=== PATIENT | female | born 1935 | race Caucasian/White ===

== ENCOUNTER → 2017-01-20 | Outpatient (CLI) | payer MEDICARE, BC ==
[~2017-01-20] MED LIST: ACETAMINOPHEN PO; CIPRO PO; DARVOCET-N 1001 TAB; DARVOCET-N 1001 TAB PO; FLAGYL PO; GAS RELIEF 8080 M1 PO; IMDUR-ER30 M1 PO; LIPITOR20 MG PO; LISINOPRIL; LISINOPRIL10 MG PO; LORTAB 5/500 TA1 TA1 PO; LORTAB 7.5-5001 TAB; MACRODANTIN; METOPROLOL TART25 MG PO; OMEPRAZOLE40 MG PO; PACERONE; PHENERGAN PO; POTASSIUM CIT; POTASSIUM CITR10 MEQ PO; PRILOSEC PO; SIMVASTATIN20 MG PO; TOPROL XL; TOPROL XL PO; TRIMETHOPRIM PO; TRIMPEX100 MG PO; VIBRAMYCIN100 M1 PO; ZOCOR PO
--- NOTE | ~2017-01-20 | CT2 ---
[facility] A Service of [facility] RADIOLOGY TEXT RESULTS PATIENT: DANA TINOCO LOCATION: [facility] : 35 UNIT #: [id number] AGE: [address]: Andrés Ochoa MD SEX: F ORDER DR: [id number] [facility]. [place], [place] [address] [id number] O MR#: [id number] Acc #: [id number] NAME: DANA TINOCO : 1935 SEX: F STUDY DATE/TIME: 01/20/2017 12:12 UNIT: [facility] ROOM: STUDY DESCRIPTION: CT Abd and Pelv W Cont Attending Physician: Andrés Ochoa Jr., M.D. Referring Physician: Andrés Ochoa Jr., M.D. Ordering Physician: Andrés Ochoa Jr., M.D. Primary Care Physician: Jayden Shi M.D. MEDICAL IMAGING REPORT This report is preliminary unless electronic signature is present EXAM CT abdomen and pelvis with contrast INDICATION 81-year-old female with perineum pain for 3 weeks. Recent bladder infection. Prior appendectomy. Rectal surgery and ileostomy. TECHNIQUE CT of the abdomen and pelvis was performed following the administration of oral and IV contrast. Coronal and sagittal reformatted images were obtained. This CT exam was performed with one or more of the following radiation dose reduction techniques: automatic exposure control, adjustment of mA and/or kV according to patient size, and iterative reconstruction. COMPARISON 12/22/2011 FINDINGS There is mild scarring in the lung bases. The liver, gallbladder, spleen and kidneys are unremarkable. Stable right adrenal gland nodule likely an adenoma. The left adrenal gland is unremarkable. The pancreas is unremarkable. There is no ascites. There is a right-sided ileostomy. PELVIS: Postoperative change of the colon. There is no evidence of pelvic floor insufficiency. There is no evidence for abscess. Bone windows are unremarkable. IMPRESSION 1. There is no evidence for abscess. 2. Prior right-sided ileostomy. [facility] A Service [facility] RADIOLOGY TEXT RESULTS PATIENT: DANA TINOCO LOCATION: [facility] : 35 UNIT #: [id number] AGE: [address]: Andrés Ochoa MD SEX: F ORDER DR: Dictated by... Andrade Clark M.D. THIS IS AN ELECTRONICALLY VERIFIED REPORT Andrade Clark M.D. at 01/21/2017 9:03 AM Ray TD: 01/20/2017 15:25 JOB #: [id number] MEDICAL IMAGING REPORT Page 1 of 1 COPY
[2017-01-20 16:11] LABS: POC - CREATININE 1.02 mg/dL (0.44-1.03)
== END | disposition home or self-care (01) ==
LOC: CCAT 10:48
PROVIDERS: Surgery
DX: R10.2 Pelvic and perineal pain (principal); Z93.2 Ileostomy status
CPT/HCPCS: 74177; 82565; Q9967

== ENCOUNTER 2017-05-03 10:47 | Emergency (ER) | payer MEDICARE, BC ==
--- NOTE | ~2017-05-03 | US85 ---
[facility] A Service of [facility] RADIOLOGY TEXT RESULTS PATIENT: DANA TINOCO LOCATION: [facility] : 35 UNIT #: [id number] AGE: [address]: Faby Millard MD SEX: F ORDER DR: [id number] [facility] [address] [place], [place] [address] [id number] MR#: [id number] Acc #: [id number] NAME: DANA TINOCO : 1935 SEX: F STUDY DATE/TIME: 05/03/2017 13:43 UNIT: [facility] ROOM: STUDY DESCRIPTION: ScaleDB Unilat or Ltd Stdy Attending Physician: Faby Millard M.D. Ordering Physician: Faby Millard M.D. Primary Care Physician: Jayden Shi M.D. MEDICAL IMAGING REPORT This report is preliminary unless electronic signature is present EXAM Right lower extremity venous Doppler. HISTORY 81-year-old female pain right lower extremity starting yesterday. Difficulty walking. FINDINGS 2-D and Doppler evaluation of the right lower extremity demonstrates normal flow and compressibility of the deep veins of the right lower extremity. Normal respiratory variation. Normal augmentation. There is focal thrombus within the right greater saphenous vein within the proximal aspect. This is manifested by intraluminal thrombus and inability to fully compress the vessel. Findings compatible with a superficial venous thrombosis. IMPRESSION 1. No sonographic evidence of deep venous thrombosis. 2. Isolated thrombus within the proximal right greater saphenous vein. Dictated by... Maggie Clark M.D. THIS IS AN ELECTRONICALLY VERIFIED REPORT Maggie Clark M.D. at 05/04/2017 12:32 PM Janie TD: 05/04/2017 01:08 JOB #: [id number] MEDICAL IMAGING REPORT Page 1 of 1 COPY
== END 2017-05-03 15:22 | disposition home or self-care (01) ==
LOC: CED 10:47
DX: I82.811 Embolism and thrombosis of superficial veins of right lower extremity (principal); I83.91 Asymptomatic varicose veins of right lower extremity; I12.0 Hypertensive chronic kidney disease with stage 5 chronic kidney disease or end stage renal disease; N18.6 End stage renal disease; E78.5 Hyperlipidemia, unspecified
CPT/HCPCS: 93971; 99284